=== PATIENT | female | born 1990 | race Caucasian/White ===

== ENCOUNTER → 2024-05-24 | Outpatient (CLI) | payer SELFPAY ==
--- NOTE | 2024-05-24 15:27 | US_ITS ---
STUDY: ULTRASOUND OF THE FEMALE PELVIS - COMPLETE REASON FOR EXAM: Female, 33 years old. AUB LMP: April 30, 2024. TECHNIQUE: Transvaginal TECHNICAL QUALITY: Adequate. COMPARISON: None. FINDINGS: The uterus is anteverted and is in a midline position. The uterus measures 8.2 cm x 4.9 cm x 4.1 cm. Normal uterine cervix. The endometrium is thickened and measures 17.5 mm in thickness, and is hyperechoic. Findings suggestive of a 1.8 cm x 1.9 cm x 1.1 cm endometrial polyp. There is no demonstrated myometrial mass. I.U.D. - The patient does not have an I.U.D. The right ovary is visualized. The right ovary measures 3.2 cm x 1.7 cm x 1.8 cm. There is no right ovarian cyst or ovarian mass. There is no visualized right adnexal mass or complex lesion. There is normal arterial and normal venous vascularity. The left ovary is visualized. The left ovary measures 1.5 cm x 1.6 cm x 1.9 cm. There is no left ovarian cyst or ovarian mass. There is no visualized left adnexal mass or complex lesion. There is normal arterial and normal venous vascularity. There is minimal fluid in the cul-de-sac. US/Transvaginal Non- IMPRESSION: Endometrial thickening. Findings suggestive of a 1.8 cm x 1.9 cm x 1.1 cm endometrial polyp Electronically Signed: Cornelius Mejia MD at 14:00 EDT ,
== END | disposition home or self-care (01) ==
PROVIDERS: PCP Family Medicine; Referring Provider Obstetrics & Gynecology; Visit Provider Obstetrics & Gynecology
DX: N93.9 Abnormal uterine and vaginal bleeding, unspecified (principal)
CPT/HCPCS: 76830